=== PATIENT | male | born 1965 | race Caucasian/White ===

== ENCOUNTER 2016-07-21 08:57 | Day surgery (SDC) | payer MEDICARE, OTHER ==
--- NOTE | ~2016-07-21 | EGD ---
EGD REPORT [facility] [address] [address] NAME: HECTOR KAM : [birth year] [place]US : [place] [facility] [place] [id number] AGE: 51 ADM/REG DATE : 07/21/16 MR#: [id number] REPORT SERV DATE: 07/21/16 DICTATED BY: CAROL DAVIES DATE: 07/21/16 REPORT STATUS : Draft [facility]ANS[facility]IBED BY: [facility] DATE: 07/21/16 Endoscopy Center Patient Name: Hector Kam Date of : 1965 Attending MD: CAROL DAVIES MD Procedure Date No Time: 07/21/2016 Procedure: Colonoscopy Indications: Screening for colorectal malignant neoplasm Referring MD: SAM DONIS Medicines: Propofol per Anesthesia Complications: No immediate complications. Procedure: Pre-Anesthesia Assessment: - ASA Grade Assessment: III - A patient with severe systemic disease. After I obtained informed consent, the scope was passed under direct vision. Throughout the procedure, the patient's blood pressure, pulse, and oxygen saturations were monitored continuously. The CF [id number] was introduced through the anus and advanced to the terminal ileum. The colonoscopy was performed without difficulty. The patient tolerated the procedure well. The quality of the bowel preparation was good. Findings: The perianal and digital rectal examinations were normal. The terminal ileum appeared normal. The colon (entire examined portion) appeared normal. A sessile polyp was found in the sigmoid colon. The polyp was 2 mm in size. The polyp was removed with a cold biopsy forceps. Resection and retrieval were complete. A sessile polyp was found in the rectum. The polyp was 3 mm in size. The polyp was removed with a cold biopsy forceps. Resection and retrieval were complete. Non-bleeding internal hemorrhoids were found during retroflexion and were mild, small and Grade I (internal hemorrhoids that do not prolapse). Impression: - The examined portion of the ileum was normal. - The entire examined colon is normal. - One 2 mm polyp in the sigmoid colon. Resected and retrieved. - One 3 mm polyp in the rectum. Resected and retrieved. - Non-bleeding internal hemorrhoids. Recommendation: - Patient has a contact number available for emergencies. The signs and symptoms of potential delayed EGD REPORT [address] [address] NAME: HECTOR KAM : [birth year] STATUS : REG [facility]#: [id number] AGE: 51 ADM/REG DATE : 07/21/16 MR#: [id number] REPORT SERV DATE: 07/21/16 DICTATED BY: CAROL DAVIES DATE: 07/21/16 REPORT STATUS : Draft TRANSCRIBED BY: [employer] DATE: 07/21/16 complications were discussed with the patient. Return to normal activities tomorrow. Written discharge instructions were provided to the patient. - Return to previous diet. - Continue present medications. - Await pathology results. - Repeat colonoscopy in 3 to 10 years for surveillance based on pathology results. - Return to my office as previously scheduled. - Discharge patient to home. Procedure Code(s): --- Professional --- 53831, Colonoscopy, flexible, proximal to splenic flexure; with biopsy, single or multiple Diagnosis Code(s): --- Professional --- K64.0, First degree hemorrhoids K62.1, Rectal polyp D12.5, Benign neoplasm of sigmoid colon Z12.11, Encounter for screening for malignant neoplasm of colon CPT copyright 2013 [employer]. All rights reserved. The codes documented in this report are preliminary and upon medical record coder review may be revised to meet current compliance requirements. Carol Davies MD CAROL DAVIES MD 07/21/2016 12:53 PM This report has been signed electronically. Number of Addenda: 0 Note Initiated On: 07/21/2016 12:06 PM Scope Withdrawal Time 0 hours 19 minutes 32 seconds [address] [place] [address]
[~2016-07-21 08:57] MED LIST: FARXIGA5 PO; GLUCOPHAGE1000 MG PO; ROXICODONE15 MG PO; WELLSR150 PO; ZANTAC150 MG PO; ZOCOR40 PO; ZYRTEC ALLGY10 MG PO
== END 2016-07-21 23:59 | disposition home or self-care (01) ==
LOC: DMU 08:57
PROVIDERS: Internal Medicine Gastroenterology
PROC: 0DBP8ZZ Excision of Rectum, Via Natural or Artificial Opening Endoscopic (ICD-10-PCS; 2016-07-21)
PROC: 0DBN8ZZ Excision of Sigmoid Colon, Via Natural or Artificial Opening Endoscopic (ICD-10-PCS; principal; 2016-07-21 10:00)
DX: Z12.11 Encounter for screening for malignant neoplasm of colon (principal); K64.0 First degree hemorrhoids; K63.5 Polyp of colon; E11.9 Type 2 diabetes mellitus without complications; G47.33 Obstructive sleep apnea (adult) (pediatric); G89.29 Other chronic pain; M54.9 Dorsalgia, unspecified; G43.909 Migraine, unspecified, not intractable, without status migrainosus; M19.90 Unspecified osteoarthritis, unspecified site; F32.9 Major depressive disorder, single episode, unspecified; K21.9 Gastro-esophageal reflux disease without esophagitis; Z79.84 Long term (current) use of oral hypoglycemic drugs; Z79.891 Long term (current) use of opiate analgesic; Z79.899 Other long term (current) drug therapy
CPT/HCPCS: 82962; 88305